=== PATIENT | female | born 1965 | race Caucasian/White ===

== ENCOUNTER 2016-11-27 11:43 | Emergency (ER) | payer MEDICAID ==
[2016-11-27] MEDS ORDERED: Sodium Chloride 0.9% 1,000 ML IV ONE (12:11)
[2016-11-27 12:22] LABS: BASO # 0.1 K/uL (0.0-0.2); BASO % 0.8 % (0.0-2.0); EOS % 0.5 % (0.0-4.0); HEMATOCRIT 37.8 % (34.0-47.0); LYMPH # 1.9 K/uL (1.0-4.3); LYMPH % 28.2 % (20.0-40.0); MEAN CELL VOLUME 90.2 fL (81.0-99.0); MEAN CORPUSCULAR HEMOGLOBIN 30.2 pg (27.0-31.0); MEAN CORPUSCULAR HGB CONC 33.5 g/dL (33.0-37.0); MEAN PLATELET VOLUME 7.1 fL (7.2-11.7); MONO # 0.4 K/uL (0.0-0.8); MONO % 5.6 % (0.0-10.0); RED CELL DISTRIBUTION WIDTH 12.1 % (11.5-14.5); WHITE BLOOD COUNT 6.7 K/uL (4.8-10.8)
--- NOTE | 2016-11-27 12:24 | C.PDOC ---
History Of Present Illness 51 yr old female presents to the ER with complaints of acute dizziness for 2 days ago. Patient states it was so bad that the room felt like it was spinning and fell over at work on Monday. She reports that the dizziness is worse with movement. She reports slight headache. Reports nausea. Denies fever, vision changes, chest pain, vomiting, neck pain, weakness or numbness. Time Seen by Provider: 11/27/16 12:02 Chief Complaint (Nursing): Dizziness/Lightheaded History Per: Patient History/Exam Limitations: no limitations Onset/Duration Of Symptoms: Days (2) Past Medical History Reviewed: Historical Data, Nursing Documentation, Vital Signs Vital Signs: Last Vital Signs Temp 97.9 F 11/27/16 14:05 Pulse 73 11/27/16 14:05 Resp 18 11/27/16 14:05 BP 115/77 11/27/16 14:05 Pulse Ox 100 11/27/16 14:05 Surgical History: Appendectomy, Cholecystectomy - [facility] Procedures CLOSED ENDOSCOPIC BIOPSY OF LARGE INTESTINE (12/24/12) Family History: States: No Known Family Hx - Social History Hx Alcohol Use: No Hx Substance Use: No Review Of Systems Except As Marked, All Systems Reviewed And Found Negative. Constitutional: Negative for: Fever, Chills, Weakness Eyes: Negative for: Vision Change ENT: Negative for: Ear Pain, Nose Pain, Nose Discharge, Throat Pain, Throat Swelling Cardiovascular: Negative for: Chest Pain, Palpitations Respiratory: Negative for: Cough, Shortness of Breath, SOB with Excertion, Wheezing Gastrointestinal: Negative for: Nausea, Vomiting, Abdominal Pain, Diarrhea, Constipation Genitourinary: Negative for: Dysuria Musculoskeletal: Negative for: Neck Pain Skin: Negative for: Rash Neurological: Positive for: Headache (mild left sided ), Dizziness. Negative for: Weakness, Numbness, Incoordination, Change in Speech, Confusion, Seizures, Altered Mental Status Psych: Negative for: Anxiety Physical Exam - Physical Exam Appears: Well, Non-toxic, No Acute Distress Skin: Warm, Dry Head: Atraumatic, Normacephalic Eye(s): bilateral: PERRL, EOMI, Other (Horizontal nystagmus) Ear(s): Bilateral: Normal Oral Mucosa: Moist Throat: No Erythema, No Exudate Neck: Normal, Normal ROM, No Midline Cervical Tenderness, Supple Chest: Symmetrical, No Tenderness Cardiovascular: Rhythm Regular, No Murmur Respiratory: Normal Breath Sounds, No Rales, No Rhonchi, No Wheezing Gastrointestinal/Abdominal: Normal Exam, Soft, No Tenderness, No Guarding, No Rebound Back: Normal Inspection Extremity: Normal ROM, No Swelling Pulses: Left Radial: Normal, Right Radial: Normal Neurological/Psych: Oriented x3, Normal Speech, Normal Motor, Normal Sensation, Normal Reflexes Gait: Steady ED Course And Treatment - Laboratory Results Result Diagrams: 11/27/16 12:19 11/27/16 12:19 O2 Sat by Pulse Oximetry: 99 (RA ) Pulse Ox Interpretation: Normal - Other Rad CXR X-Ray: Viewed By Me, Read By Radiologist Interpretation: HISTORY: dizziness. COMPARISON: None available. TECHNIQUE: Chest, one view. FINDINGS: LUNGS: No focal consolidation. Please note that chest x-ray has limited sensitivity for the detection of pulmonary masses. PLEURA: No significant pleural effusion identified. No definite pneumothorax . CARDIOVASCULAR: Heart size appears within normal limits. OSSEOUS STRUCTURES : No acute osseous abnormality identified. VISUALIZED UPPER ABDOMEN: Unremarkable. OTHER FINDINGS: None. IMPRESSION: No focal consolidation, significant pleural effusion, or definite pneumothorax identified. - CT Scan/US CT - Head Other Rad Studies (CT/US): Read By Radiologist, Radiology Report Reviewed CT/US Interpretation: PROCEDURE: CT HEAD WITHOUT CONTRAST. HISTORY: headache , dizziness. COMPARISON: None available. TECHNIQUE: Axial computed tomography images were obtained through the head/brain without intravenous contrast. Radiation dose: Total exam DLP = 706.02 mGy-cm. This CT exam was performed using one or more of the following dose reduction techniques: Automated exposure control, adjustment of the mA and/or kV according to patient size, and/or use of iterative reconstruction technique. FINDINGS: HEMORRHAGE: No intracranial hemorrhage. BRAIN: No mass effect or edema. No atrophy or chronic microvascular ischemic changes.Diffuse atrophy with prominence of the ventricles and sulci noted. VENTRICLES: No hydrocephalus. CALVARIUM: Unremarkable. PARANASAL SINUSES: Unremarkable as visualized. No significant inflammatory changes. MASTOID AIR CELLS: Under aeration of the mastoid air cells; correlate clinically for history of mastoiditis. OTHER FINDINGS: None. IMPRESSION: No acute intracranial pathology identified. Under aeration of the mastoid air cells; correlate clinically for history of mastoiditis. Medical Decision Making Medical Decision Making: PLAN: Dizziness, more consistent with peripheral than central cause. Neurologically intact * CT - Head * CXR * Troponin * CBC * CMP * HCG * Urinalysis * Meclizine PO * Tylenol PO * Zofran IVP * Sodium Chloride IV 12:54PM EKG shows NSR at 83bpm with normal intervals and no ST changes. Cxray negative. CBC, CMP, Mg, Phos WNL. Trop negative. UA shows hematuria but no infection. 1:45PM CT head negative. On reevaluation, patient feels better. She is ambulating around the ED without issue. Will dc Disposition - Disposition Disposition: HOME/ ROUTINE Disposition Time: 13:46 Condition: GOOD Additional Instructions: Follow up with PMD within 2 days. Return to ED if condition worsens. Take meclizine as needed for dizziness. Follow-up as outpatient for hematuria Prescriptions: Meclizine [Meclizine*] 25 mg PO Q6 PRN #30 tab PRN Reason: Dizziness Instructions: Vertigo (ED), Acute Hematuria (ED) Forms: Gen Discharge Inst Guatemalan, [facility] (Guatemalan) - Clinical Impression Clinical Impression: Hematuria, Dizziness - Scribe Statement The provider has reviewed the documentation as recorded by the Jose Leyva Provider Attestation: All medical record entries made by the Jose were at my direction and personally dictated by me. I have reviewed the chart and agree that the record accurately reflects my personal performance of the history, physical exam, medical decision making, and the department course for this patient. I have also personally directed, reviewed, and agree with the discharge instructions and disposition.
[2016-11-27] MEDS ORDERED: Sodium Chloride 0.9% 1,000 ML ONE (12:27)
[2016-11-27 12:31] LABS: CHLORIDE 102 mmol/L (98-107); SODIUM 141 mmol/L (132-148)
[2016-11-27 12:32] LABS: POTASSIUM 3.9 mmol/L (3.6-5.2)
[2016-11-27 12:33] LABS: BILIRUBIN,TOTAL 0.7 mg/dL (0.2-1.3); GFR AFRICAN-AMERICAN > 60
[2016-11-27 12:34] LABS: ALB/GLOB RATIO 1.3 (1.0-2.1); ALKALINE PHOSPHATASE 52 U/L (38-126); ALT/SGPT 23 U/L (9-52); AST/SGOT 21 U/L (14-36); BLOOD UREA NITROGEN 13 mg/dL (7-17); CALCIUM 8.8 mg/dl (8.6-10.4); CARBON DIOXIDE 25 mmol/L (22-30); GLUCOSE,RANDOM 151 mg/dL (65-105); MAGNESIUM 1.9 mg/dL (1.6-2.3); PHOSPHOROUS 3.2 mg/dL (2.5-4.5); TOTAL PROTEIN 6.9 g/dL (6.3-8.3)
--- NOTE | 2016-11-27 12:36 | RAD ---
HISTORY: dizziness COMPARISON: None available. TECHNIQUE: Chest, one view. FINDINGS: LUNGS: No focal consolidation. Please note that chest x-ray has limited sensitivity for the detection of pulmonary masses. PLEURA: No significant pleural effusion identified. No definite pneumothorax . CARDIOVASCULAR: Heart size appears within normal limits. OSSEOUS STRUCTURES: No acute osseous abnormality identified. VISUALIZED UPPER ABDOMEN: Unremarkable. OTHER FINDINGS: None. IMPRESSION: No focal consolidation, significant pleural effusion, or definite pneumothorax identified.
[2016-11-27 12:47] LABS: RBC URINE 13 /hpf (0-3); URINE BILIRUBIN NEGATIVE (NEGATIVE); URINE BLOOD 1+ (NEGATIVE); URINE COLOR Yellow (YELLOW); URINE GLUCOSE (UA) NORMAL (Normal); URINE KETONE NEGATIVE (NEGATIVE); URINE LEUKOCYTE ESTERASE NEG Leu/uL (Negative); URINE PROTEIN NEGATIVE (NEGATIVE); URINE UROBILINOGEN NORMAL mg/dL (0.2-1.0); WBC URINE 1 /hpf (0-5)
--- NOTE | 2016-11-27 13:30 | CT ---
PROCEDURE: CT HEAD WITHOUT CONTRAST. HISTORY: headache, dizziness COMPARISON: None available. TECHNIQUE: Axial computed tomography images were obtained through the head/brain without intravenous contrast. Radiation dose: Total exam DLP = 706.02 mGy-cm. This CT exam was performed using one or more of the following dose reduction techniques: Automated exposure control, adjustment of the mA and/or kV according to patient size, and/or use of iterative reconstruction technique. FINDINGS: HEMORRHAGE: No intracranial hemorrhage. BRAIN: No mass effect or edema. No atrophy or chronic microvascular ischemic changes.Diffuse atrophy with prominence of the ventricles and sulci noted. VENTRICLES: No hydrocephalus. CALVARIUM: Unremarkable. PARANASAL SINUSES: Unremarkable as visualized. No significant inflammatory changes. MASTOID AIR CELLS: Under aeration of the mastoid air cells; correlate clinically for history of mastoiditis. OTHER FINDINGS: None. IMPRESSION: No acute intracranial pathology identified. Under aeration of the mastoid air cells; correlate clinically for history of mastoiditis.
[2016-11-27 14:14] VITALS: BP 115/77; PULSE 73; RESP 18; TEMP 97.9
[2016-11-27 14:31] VITALS: O2SAT 99
--- NOTE | 2016-11-30 14:26 | CARD ---
APPROVED REPORT EKG Measurement Heart [id number] <Conclusion> Normal sinus rhythm Normal ECG
== END 2016-11-27 14:14 | disposition home or self-care (01) ==
LOC: C.ER 11:43
DX: R42 Dizziness and giddiness (principal); R31.9 Hematuria, unspecified
CPT/HCPCS: 70450; 71010; 80053; 81001; 82550; 82553; 83735; 84100; 84484; 84703; 85025; 93005; 96361; 96374; 99285; J2405; J7040

== ENCOUNTER 2017-06-21 14:51 | Emergency (ER) | payer MEDICAID ==
[2017-06-21 14:54] VITALS: BMI 25.4
[2017-06-21 14:59] VITALS: BP 136/85; PULSE 81; RESP 18; O2SAT 99
[2017-06-21] MEDS ORDERED: Naproxen 550 mg Tab PO STA (15:05)
--- NOTE | 2017-06-21 15:17 | C.PDOC ---
History Of Present Illness 51-year-old female, presents to the emergency department with complaints of upper back pain and right shoulder pain. Patient reports she was cleaning in a circular motion, when she developed pain in her right upper back, prompting visit. Patient notes pain worsens with arm movement. She denies fever, numbness/ weakness, vomiting. Time Seen by Provider: 06/21/17 15:01 Chief Complaint (Nursing): Back Pain History Per: Patient History/Exam Limitations: no limitations Past Medical History Reviewed: Historical Data, Nursing Documentation, Vital Signs Vital Signs: Last Vital Signs Temp Pulse 81 06/21/17 14:56 Resp 18 06/21/17 14:56 BP 136/85 06/21/17 14:56 Pulse Ox 99 06/21/17 16:42 Surgical History: Appendectomy, Cholecystectomy - [facility] Procedures CLOSED ENDOSCOPIC BIOPSY OF LARGE INTESTINE (12/24/12) Family History: States: No Known Family Hx - Social History Hx Alcohol Use: No Hx Substance Use: No Review Of Systems Constitutional: Negative for: Fever Respiratory: Negative for: Shortness of Breath Gastrointestinal: Negative for: Vomiting Musculoskeletal: Positive for: Shoulder Pain, Back Pain Neurological: Negative for: Weakness, Numbness, Headache, Dizziness Physical Exam - Physical Exam Appears: Well, Non-toxic, No Acute Distress Skin: Normal Color, Warm, Dry, No Rash Neck: Normal ROM Cardiovascular: Rhythm Regular, No Murmur Respiratory: Normal Breath Sounds, No Decreased Breath Sounds, No Accessory Muscle Use Back: Paraspinal Tenderness (right-upper) Extremity: Normal ROM, No Deformity, No Swelling Neurological/Psych: Oriented x3, Normal Speech ED Course And Treatment O2 Sat by Pulse Oximetry: 99 (RA) Pulse Ox Interpretation: Normal Medical Decision Making Medical Decision Making: exam consistent with msk pain imaging neg. pain improving. advise outpt fu and return precautions Disposition - Disposition Referrals: Cl Hoover MD [Non-Staff] - [facility] [place] [Outside] [facility] [Outside] [facility] [facility] [Outside] [id number] [Outside] Disposition: HOME/ ROUTINE Disposition Time: 16:38 Condition: STABLE Additional Instructions: please follo wup with specialist. return to er with worsening symptoms or concerns. Prescriptions: Naproxen 500 mg PO BID PRN #14 tablet PRN Reason: Pain, Mild (1-3) Instructions: Shoulder Sprain, Upper Back Pain Forms: [facility] (Kenyan), Work Excuse - Clinical Impression Clinical Impression: Back pain, Shoulder pain - Scribe Statement The provider has reviewed the documentation as recorded by the Scribe (Nayan Hargrove) All medical record entries made by the Scribe were at my direction and personally dictated by me. I have reviewed the chart and agree that the record accurately reflects my personal performance of the history, physical exam, medical decision making, and the department course for this patient. I have also personally directed, reviewed, and agree with the discharge instructions and disposition.
[2017-06-21] MEDS ORDERED: Naproxen 550 mg Tab PO ONE (15:26)
--- NOTE | 2017-06-21 17:51 | RAD ---
PROCEDURE: Radiographs of the Right Shoulder HISTORY: shoulder pain COMPARISON: None available. FINDINGS: BONES: No acute displaced fracture. The distal clavicle and underlying ribs appear intact. JOINTS: No acute dislocation. SOFT TISSUES: Soft tissues appear unremarkable. No evidence of radiopaque foreign body. IMPRESSION: No acute displaced fracture or dislocation evident. If symptoms persist or if there is continued clinical concern, x-ray follow-up in 7-10 days should be considered.
== END 2017-06-21 17:00 | disposition home or self-care (01) ==
LOC: C.ER 14:51
DX: M25.511 Pain in right shoulder (principal); M54.9 Dorsalgia, unspecified
CPT/HCPCS: 73030; 96372; 99283; J1885